=== PATIENT | male | born 1980 | race Two or more races ===

== ENCOUNTER 2021-10-24 16:53 | Emergency (ER) | payer BC ==
[~2021-10-24] VITALS: Ht 190.5 cm; Wt 108.9 kg
== END 2021-10-24 18:18 | disposition home or self-care (01) ==
LOC: ER 16:53
DX: S90.415A Abrasion, left lesser toe(s), initial encounter (principal); W18.30XA Fall on same level, unspecified, initial encounter; Y93.9 Activity, unspecified; Y92.9 Unspecified place or not applicable; Y99.9 Unspecified external cause status